=== PATIENT | male | born 1975 | race African-American/Black ===

== ENCOUNTER 2016-06-26 11:38 | Emergency (ER) | payer MEDICAID, OTHER ==
[~2016-06-26] VITALS: Ht 188 cm; Wt 136.1 kg
[2016-06-26 11:38] VITALS: BP 192/122
[2016-06-26] MEDS ORDERED: HYDR-971 PO (12:29)
--- NOTE | 2016-06-26 12:51 | ED.ADGEN ---
Past History Past Medical History: No Pertinent History Past Surgical History: No Surgical History Alcohol Use: Occasionally Drug Use: None Adult General HPI HPI Patient is a 41-year-old male presents emergency department complaining of left ankle pain since when the ankle last night while playing basketball. His been ambulating with pain. Has been using [id number] supportive measures without much success. Review of Systems Review of Systems Constitutional: Denies fever or chills [] Eyes: Denies change in visual acuity, redness, or eye pain [] HENT: Denies nasal congestion or sore throat [] Respiratory: Denies cough or shortness of breath [] Cardiovascular: No additional information not addressed in HPI [] GI: Denies abdominal pain, nausea, vomiting, bloody stools or diarrhea [] : Denies dysuria or hematuria [] Musculoskeletal: Denies back pain or joint pain [] Integument: Denies rash or skin lesions [] Neurologic: Denies headache, focal weakness or sensory changes [] Endocrine: Denies polyuria or polydipsia [] Allergies Allergies Allergies Coded Allergies Type Severity Reaction Last Updated Verified No Known Drug Allergies 06/26/16 No Physical Exam Physical Exam Constitutional: Well developed, well nourished, no acute distress, non-toxic appearance. [] HENT: Normocephalic, atraumatic, bilateral external ears normal, oropharynx moist, no oral exudates, nose normal. [] Eyes: PERRLA, EOMI, conjunctiva normal, no discharge. [] Neck: Normal range of motion, no tenderness, supple, no stridor. [] Cardiovascular:Heart rate regular rhythm, no murmur [] Lungs & Thorax: Bilateral breath sounds clear to auscultation [] Abdomen: Bowel sounds normal, soft, no tenderness, no masses, no pulsatile masses. [] Skin: Warm, dry, no erythema, no rash. [] Extremities: Left ankle is generally edematous with tenderness primarily over the Achilles and medial malleolus [] Neurologic: Alert and oriented X 3, normal motor function, normal sensory function, no focal deficits noted. [] Psychologic: Affect normal, judgement normal, mood normal. [] Current Patient Data Vital Signs Vital Signs Date Time Temp Pulse Resp B/P Pulse Ox O2 Delivery O2 Flow Rate FiO2 06/26/16 11:38 97.7 99 20 98 Room Air EKG EKG [] Radiology/Procedures Radiology/Procedures Left ankle x-ray interpreted by me no acute bony normality [] Course & Med Decision Making Course & Med Decision Making Pertinent Labs and Imaging studies reviewed. (See chart for details) Patient was placed in an air splint. Given a short prescription for Stephens. Also instructed with supportive care and follow-up directions. [] Final Impression Final Impression Left ankle pain. [] Problems: Dragon Disclaimer Dragon Disclaimer This electronic medical record was generated, in whole or in part, using a voice recognition dictation system. FEDERICA WEN MD Jun 26, 2016 12:50
--- NOTE | 2016-06-26 13:33 | RAD ---
ANKLE LEFT 3V Clinical Indication: pain s/p fall Comparison: None. Technique: Frontal, oblique and lateral views of the left ankle are obtained. Findings: No acute fracture or dislocation is seen. Ankle mortise is maintained. Overlying soft tissues demonstrate no focal abnormality. IMPRESSION: No acute osseous injury.
== END 2016-06-26 12:58 | disposition home or self-care (01) ==
LOC: ER 11:38
DX: M25.572 Pain in left ankle and joints of left foot (principal); X58.XXXA Exposure to other specified factors, initial encounter; Y93.67 Activity, basketball; Y99.8 Other external cause status; Y92.89 Other specified places as the place of occurrence of the external cause
CPT/HCPCS: 29515; 73610; 99284-25

== ENCOUNTER 2019-11-18 16:55 | Emergency (ER) | payer OTHER ==
[~2019-11-18] VITALS: Ht 190.5 cm; Wt 132.0 kg
[~2019-11-18 16:55] MED LIST: HYDR-3165 PO
[2019-11-18] MEDS ORDERED: IV NORMAL SALINE 1,000ML 1,000 ML IV ONE ×2 (17:00→19:15)
[2019-11-18] MEDS ORDERED: ONDANSETRON PF 4 MG/2 ML VIAL. IVP ONE (17:00)
--- NOTE | 2019-11-18 17:13 | PHYS DOC ---
Past History Past Medical History: No Pertinent History (LEONEL SHARMA DO) Past Surgical History: No Surgical History (LEONEL SHARMA DO) Alcohol Use: Occasionally Drug Use: None (LEONEL SHARMA DO) General Adult HPI: HPI: The history was obtained from the patient. Patient is a 44-year-old male with PMH hypertension who presents with a chief complaint of nausea and diarrhea. Patient states he has had nausea for the past 4 days. He also notes loose stool. He states he has had 1 loose stool per day. Denies any blood in the stool. Denies any recent antibiotics. Denies any recent travel. Denies any access to well water or new pets at home. Denies any abdominal pain, chest pain, or shortness of breath. He states every time he tries to eat that he has vomiting again. He notes subjective fevers and chills at home. Notes he was tested for coronavirus 1 month ago and was normal. He states he was tested for work and that he was asymptomatic. Denies any known exposure to coronavirus. Denies syncope. Has tried TheraFlu for the first time this morning without symptom relief. Denies urinary symptoms. No other complaints. (LEONEL SHARMA DO) Review of Systems: Review of Systems: Constitutional: Denies fever or chills Eyes: Denies change in visual acuity HENT: Denies nasal congestion or sore throat Respiratory: Denies cough or shortness of breath Cardiovascular: Denies chest pain or edema GI: Positive for nausea, vomiting, diarrhea : Denies dysuria Musculoskeletal: Denies back pain or joint pain Integument: Denies rash Neurologic: Denies headache, focal weakness or sensory changes Endocrine: Denies polyuria or polydipsia Lymphatic: Denies swollen glands Psychiatric: Denies depression or anxiety (LEONEL SHARMA DO) Heart Score: Risk Factors: Risk Factors: DM, Current or recent (<one month) smoker, HTN, HLP, family history of CAD, obesity. Risk Scores: Score 0 - 3: 2.5% MACE over next 6 weeks - Discharge Home Score 4 - 6: 20.3% MACE over next 6 weeks - Admit for Clinical Observation Score 7 - 10: 72.7% MACE over next 6 weeks - Early Invasive Strategies (TANQUARY,LEONEL H DO) Current Medications: Current Meds: Current Medications Medications (Trade) Dose Ordered Sig/Sandeep Start Time Stop Time Status Last Admin Dose Admin Ondansetron HCl (Zofran) 4 mg 1X ONCE 11/18/19 17:00 11/18/19 17:01 UNV Sodium Chloride 1,000 ml @ 1,000 mls/hr 1X ONCE 11/18/19 17:00 11/18/19 17:59 UNV (LEONEL SHARMA DO) Allergies: Allergies: Allergies Coded Allergies Type Severity Reaction Last Updated Verified No Known Drug Allergies 06/26/16 No (LEONEL SHARMA DO) Physical Exam: PE: Constitutional: Well developed, well nourished, no acute distress, non-toxic appearance. [] HENT: Normocephalic, atraumatic, bilateral external ears normal, oropharynx moist, no oral exudates, nose normal. [] Eyes: PERRLA, EOMI, conjunctiva normal, no discharge. [] Neck: Normal range of motion, no tenderness, supple, no stridor. [] Cardiovascular:Heart rate regular rhythm, no murmur [] Lungs & Thorax: Bilateral breath sounds clear to auscultation [] Abdomen: Soft, nontender, nonacute abdomen. No involuntary guarding or rigidity noted. No acute peritonitis. Skin: Warm, dry, no erythema, no rash. [] Back: No tenderness, no CVA tenderness. [] Extremities: No tenderness, no cyanosis, no clubbing, ROM intact, no edema. [] Neurologic: Alert and oriented X 3, normal motor function, normal sensory function, no focal deficits noted. [] Psychologic: Affect normal, judgement normal, mood normal. [] (LEONEL SHARMA DO) Current Patient Data: Vital Signs: Vital Signs Date Time Temp Pulse Resp B/P (MAP) Pulse Ox O2 Delivery O2 Flow Rate FiO2 11/18/19 17:05 99.7 98 20 207/129 (155) 96 Room Air (LEONEL SHARMA DO) Labs: Laboratory Tests Test 11/18/19 17:15 11/18/19 17:40 White Blood Count 3.1 x10^3/uL (4.0-11.0) Red Blood Count 3.75 x10^6/uL (4.30-5.70) Hemoglobin 11.3 g/dL (13.0-17.5) Hematocrit 33.9 % (39.0-53.0) Mean Corpuscular Volume 91 fL (79-100) Mean Corpuscular Hemoglobin 30 pg (25-35) Mean Corpuscular Hemoglobin Concent 33 g/dL (31-37) Red Cell Distribution Width 15.5 % (11.5-14.5) Platelet Count 155 x10^3/uL (140-400) Neutrophils (%) (Auto) 83 % (31-73) Lymphocytes (%) (Auto) 8 % (24-48) Monocytes (%) (Auto) 8 % (0-9) Eosinophils (%) (Auto) 0 % (0-3) Basophils (%) (Auto) 0 % (0-3) Neutrophils # (Auto) 2.5 x10^3uL (1.8-7.7) Lymphocytes # (Auto) 0.2 x10^3/uL (1.0-4.8) Monocytes # (Auto) 0.3 x10^3/uL (0.0-1.1) Eosinophils # (Auto) 0.0 x10^3/uL (0.0-0.7) Basophils # (Auto) 0.0 x10^3/uL (0.0-0.2) Sodium Level 137 mmol/L (136-145) Potassium Level 3.6 mmol/L (3.5-5.1) Chloride Level 103 mmol/L (98-107) Carbon Dioxide Level 19 mmol/L (21-32) Anion Gap 15 (6-14) Blood Urea Nitrogen 50 mg/dL (8-26) Creatinine 5.7 mg/dL (0.7-1.3) Estimated GFR (Cockcroft-Gault) 13.2 BUN/Creatinine Ratio 9 (6-20) Glucose Level 101 mg/dL (70-99) Calcium Level 7.6 mg/dL (8.5-10.1) Magnesium Level 2.0 mg/dL (1.8-2.4) Total Bilirubin 1.0 mg/dL (0.2-1.0) Aspartate Amino Transf (AST/SGOT) 67 U/L (15-37) Alanine Aminotransferase (ALT/SGPT) 55 U/L (16-63) Alkaline Phosphatase 64 U/L (46-116) Total Protein 6.0 g/dL (6.4-8.2) Albumin 2.7 g/dL (3.4-5.0) Albumin/Globulin Ratio 0.8 (1.0-1.7) Lipase 202 U/L (73-393) Urine Collection Type Unknown Urine Color Yellow Urine Clarity Hazy Urine pH 5.5 Urine Specific Allison 1.020 Urine Protein >100 mg/dl (NEG-TRACE) Urine Glucose (UA) Neg mg/dL (NEG) Urine Ketones (Stick) Neg mg/dL (NEG) Urine Blood Mod (NEG) Urine Nitrite Neg (NEG) Urine Bilirubin Neg (NEG) Urine Urobilinogen Dipstick 1.0 mg/dL (0.2 mg/dL) Urine Leukocyte Esterase Neg (NEG) Urine RBC 3-5 /HPF (0-2) Urine WBC Occ /HPF (0-4) Urine Squamous Epithelial Cells Few /LPF Urine Bacteria Few /HPF (0-FEW) Urine Hyaline Casts Occ /HPF Urine Mucus Slight /LPF (KENNETH SOLIS DO) EKG: EKG: [] (LEONEL SHARMA DO) Radiology/Procedures: Radiology/Procedures: [] (LEONEL SHARMA DO) Course & Med Decision Making: Course & Med Decision Making Pertinent Labs and Imaging studies reviewed. (See chart for details) Patient is overall well-appearing 44-year-old male who presents with a chief complaint of nausea associated with 4 episodes of nonbloody loose stool. Initial vital signs unremarkable. Patient is overall well-appearing and has a benign abdominal exam. At this time laboratory analysis is pending. COVID swab was obtained and pending. He will be notified of positive results. Overall I do anticipate the patient to be discharged home pending lab results. I have signed out the patient's emergency department care to Dr. Solis. We discussed the history, physical exam findings, completed and pending laboratory results and imaging studies. We have also discussed the current treatment plan and expected clinical course. Please refer to chart for the patient's remaining emergency department course, final disposition, and clinical impression(s). (LEONEL SHARMA DO) Course & Med Decision Making Thorough signout obtained from off going physician Patient seen and evaluated by myself, reports feeling better symptomatically after administration of 1 L IV normal saline Nonetheless, reviewed laboratory results significant for acute renal failure, creatinine greater than 5 No known history of kidney disease but patient does have hypertension that was markedly elevated today, this is likely contributory to laboratory finding I discussed need for ongoing IV fluid resuscitation and nephrology consultation, I recommended hospital admission and patient was amenable Case discussed with on-call hospitalist at [facility], Dr. Beal, who agreed to accept patient under his care for continued medical therapy and nephrology consultation I discussed this decision with patient who was agreeable An additional 1 L IV normal saline bolus was started prior to transport in stable condition to [facility] for continued medical therapy for patient with acute renal failure who is also a PUI for COVID-19 (KENNETH SOLIS DO) Alberto Disclaimer: Alberto Disclaimer: This electronic medical record was generated, in whole or in part, using a voice recognition dictation system. (LEONEL SHARMA DO) Departure Departure: Impression: Primary Impression: Nausea Additional Impressions: Diarrhea Qualified Codes: R19.7 - Diarrhea, unspecified ARF (acute renal failure) Person under investigation for COVID-19 Disposition: 05 TRANSFER OTHER ([facility]) Admitting Physician: Other (DR BEAL) (KENNETH SOLIS DO) Condition: STABLE Referrals: ALEYDA SAM DO (PCP) Justification of Admission: Justification of Admission: Justification of Admission Dx: N/A (LEONEL SHARMA DO) Justification of Admission Dx: Yes Acute Renal Failure: Serum Cr > 4mg/dL (KENNETH SOLIS DO) LEONEL SHARMA DO Nov 18, 2019 17:13 KENNETH SOLIS DO Nov 18, 2019 19:00
[2019-11-18] MEDS ORDERED: ACETAMINOPHEN 500 MG TABLET PO ONE (17:25)
[2019-11-18 17:59] LABS: BASO % 0 % (0-3); EOS % 0 % (0-3); HEMATOCRIT 33.9 % (39.0-53.0); HEMOGLOBIN 11.3 g/dL (13.0-17.5); LYMPH # 0.2 x10^3/uL (1.0-4.8); LYMPH % 8 % (24-48); MEAN CORPUSCULAR HEMOGLOBIN 30 pg (25-35); MEAN CORPUSCULAR HGB CONC 33 g/dL (31-37); MEAN CORPUSCULAR VOLUME 91 fL (79-100); MONO # 0.3 x10^3/uL (0.0-1.1); MONO % 8 % (0-9); NEUT # 2.5 x10^3uL (1.8-7.7); NEUT % 83 % (31-73); PLATELET COUNT 155 x10^3/uL (140-400); RED BLOOD COUNT 3.75 x10^6/uL (4.30-5.70); RED CELL DISTRIBUTION WIDTH 15.5 % (11.5-14.5); WHITE BLOOD COUNT 3.1 x10^3/uL (4.0-11.0)
[2019-11-18 18:08] LABS: CALCIUM 7.6 mg/dL (8.5-10.1); CREATININE 5.7 mg/dL (0.7-1.3); GFR 13.2; POTASSIUM 3.6 mmol/L (3.5-5.1)
[2019-11-18 18:12] LABS: BILIRUBIN,URINE NEG (NEG); CLARITY,URINE HAZY; COLOR,URINE YELLOW; GLUCOSE,URINE NEG (NEG)
[2019-11-18 18:13] LABS: BACTERIA,URINE FEW /HPF (0-FEW); NITRITE,URINE NEG (NEG); SQUAMOUS EPITHELIAL CELL,UR FEW /LPF; WBC,URINE OCC /HPF (0-4)
[2019-11-18 18:14] LABS: ALBUMIN 2.7 g/dL (3.4-5.0); ALBUMIN/GLOBULIN RATIO 0.8 (1.0-1.7)
[2019-11-18 18:14] LABS: HYALINE CASTS, URINE OCC /HPF
[2019-11-18 19:22] LABS: % BANDS 5 % (0-9); % LYMPHS 10 % (24-48); % MONOS 4 % (0-10); % SEGS 81 % (35-66); PLT ESTIMATE ADEQUATE (ADEQUATE)
[2019-11-18] MEDS ORDERED: amLODIPine BESYLATE 5 MG TABLET PO ONE (19:30)
[2019-11-18 20:36] VITALS: BP 194/99
--- NOTE | 2019-11-21 09:12 | NUR ---
IP: patient notified of COVID result, discussed precautions, patient verbalized understanding.
--- NOTE | 2019-11-21 09:46 | NUR ---
IP: notified nurse Freya at [facility] of COVID result.
== END 2019-11-18 20:52 | disposition short-term general hospital (02) ==
LOC: ER 16:55
DX: U07.1 COVID-19 (principal); N17.9 Acute kidney failure, unspecified; R19.7 Diarrhea, unspecified; R11.0 Nausea; I10 Essential (primary) hypertension
CPT/HCPCS: 36415; 80053; 81001; 83690; 83735; 85007; 85025; 96361; 96374; 99285; C9803; J2405; J7030; U0003

== ENCOUNTER 2020-01-22 14:33 | Observation (INO) | payer OTHER ==
[~2020-01-22] VITALS: Ht 189.2 cm; Wt 142.5 kg
[~2020-01-22 14:33] MED LIST changes: +AZIT250T PO
[2020-01-22 15:16] VITALS: BP 137/68
[2020-01-22] MEDS ORDERED: ISOS30TA4 PO (15:30)
[2020-01-22] MEDS ORDERED: AMLO-187 PO (15:30)
[2020-01-22] MEDS ORDERED: DOXA4TAB3 PO (15:30)
[2020-01-22] MEDS ORDERED: CLON0.3T PO (15:30)
[2020-01-22] MEDS ORDERED: FUROSEMIDE 40 MG/4 ML VIAL IVP ONE (15:45)
--- NOTE | 2020-01-22 16:09 | RAD ---
Exam: Chest one view INDICATION: Short of air, fluid overload TECHNIQUE: Frontal view of the chest Comparisons: None FINDINGS: The cardiomediastinal silhouette and pulmonary vessels are within normal limits. The lung and pleural spaces are clear. IMPRESSION: No acute cardiopulmonary process. Electronically signed by: Franky Webster MD (01/22/2020 4:06 PM) BUSHRA
[2020-01-22 16:18] LABS: BASO % 1 % (0-3); EOS % 2 % (0-3); HEMATOCRIT 22.1 % (39.0-53.0); HEMOGLOBIN 7.3 g/dL (13.0-17.5); LYMPH # 0.5 x10^3/uL (1.0-4.8); LYMPH % 18 % (24-48); MEAN CORPUSCULAR HEMOGLOBIN 30 pg (25-35); MEAN CORPUSCULAR HGB CONC 33 g/dL (31-37); MEAN CORPUSCULAR VOLUME 92 fL (79-100); MONO # 0.3 x10^3/uL (0.0-1.1); MONO % 10 % (0-9); NEUT % 70 % (31-73); PLATELET COUNT 159 x10^3/uL (140-400); RED BLOOD COUNT 2.41 x10^6/uL (4.30-5.70); RED CELL DISTRIBUTION WIDTH 17.5 % (11.5-14.5); WHITE BLOOD COUNT 2.9 x10^3/uL (4.0-11.0)
[2020-01-22 16:28] LABS: CALCIUM 8.2 mg/dL (8.5-10.1); CREATININE 7.6 mg/dL (0.7-1.3); GFR 9.5; POTASSIUM 4.6 mmol/L (3.5-5.1)
[2020-01-22 16:33] LABS: ALBUMIN 3.1 g/dL (3.4-5.0); TOTAL BILIRUBIN 0.4 mg/dL (0.2-1.0); TOTAL PROTEIN 6.2 g/dL (6.4-8.2)
--- NOTE | 2020-01-22 17:05 | EKG ---
[address] [address] Test Date: 2020-01-22 Test Time: 16:18:58 Pat Name: JINA PAN Department: Room: [place] [address] Gender: M Heading Pinner: : 1975 Requested By: NAKIA LORENZ Order Number: [id number] Reading MD: Olivier Beard Measurements Intervals [place] Rate: 65 P: 51 CO: 212 QRS: -26 QRSD: 102 T: 63 QT: 430 QTc: 448 Interpretive Statements SINUS RHYTHM LEFTWARD AXIS Electronically Signed On 01-25-2020 15:52:30 GALLERY [employer] MUSEUM GUIDE by Olivier Beard
[2020-01-22 19:00] VITALS: BP 151/84
[2020-01-22] MEDS ORDERED: FUROSEMIDE 20 MG/2 ML VIAL IVP ONE (19:30)
--- NOTE | 2020-01-22 19:38 | NUR ---
Patient arrived without warning from the medical office of doctor Corley. Was told to come here by the office and so he did with no orders or warning. After drawing patient labs and receiving results, doctor Barney was promptly notified about need for dialysis given kidney function. Patient adamant about not going to [facility] because of the terrible time he had there recently. He has had a temporary dialysis cath in the past. Tried to transfer to another hospital but all were on diversion according to Dr. Corley. spoke to licensed and certified midwife at who suggested giving 20 of IV lasix and rechecking kidney values in am to see where they stand. Awaiting potential transfer to another hospital for dialysis reasons. 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 20 gauge IV started in right ac upon arrival to ICU.
[2020-01-22 22:32] LABS: BACTERIA,URINE 0 /HPF (0-FEW); BILIRUBIN,URINE NEG (NEG); CLARITY,URINE CLEAR; COLOR,URINE YELLOW; GLUCOSE,URINE NEG (NEG); NITRITE,URINE NEG (NEG); RBC,URINE 0 /HPF (0-2); SQUAMOUS EPITHELIAL CELL,UR OCC /LPF; UROBILINOGEN,URINE 0.2 mg/dL (0.2 mg/dL); WBC,URINE OCC /HPF (0-4)
[2020-01-22 23:00] VITALS: BP 150/90
[2020-01-23 03:00] VITALS: BP 156/68
[2020-01-23 07:00] VITALS: BP 146/78
[2020-01-23 07:00] LABS: CALCIUM 8.3 mg/dL (8.5-10.1); CREATININE 7.4 mg/dL (0.7-1.3); GFR 9.8; POTASSIUM 4.4 mmol/L (3.5-5.1)
[2020-01-23] MEDS ORDERED: FUROSEMIDE 20 MG/2 ML VIAL IVP SCH (09:00)
[2020-01-23] MEDS ORDERED: FUROSEMIDE 40 MG/4 ML VIAL IVP ONE (09:30)
--- NOTE | 2020-01-23 10:00 | NUR ---
Dr. Corley here to see patient this am. Patient refuses to go to [facility] and would only want to go through [facility] for possible dialysis. CM is reaching out to Neph clinic at [facility] to see how soon patient can be seen. Patient states he has very important things to do today and needs to leave today. Currently awaiting JOCELYN
[2020-01-23 11:00] VITALS: BP 140/76
--- NOTE | 2020-01-23 14:45 | NUR ---
referral to [facility] nephrology clinic was faxed by CM. Pt is to call Dr. Corley Monday am and earlier if needed. IV dc'd, bandage applied. pt ambulated to pov upon discharge. pt refused wheelchair.
--- NOTE | 2020-01-27 16:26 | DS ---
DATE OF DISCHARGE: 01/23/2020 HOSPITAL COURSE: A 45-year-old male, noncompliant, had been seen in the office, markedly fluid overloaded, said that he could not bend his legs because of so much fluid on him. He was brought into the hospital and found to have a white count of 2.9, hemoglobin of 7.3 and 22. The patient's creatinine was 7.6 with a BUN of 60. The patient's BNP was 8100. The patient obviously was in the renal failure, but in a compensated mode in that. He actually overall said he felt really good and was able to function except for the fluid overload. After attempting to get him transfer to several places and all were on diversion, I was fortunate to be able to talk to a material specialist from who recommended trying him on some Lasix to see if he improved and that would give us a clue as to how fast he would need dialysis. The patient felt much better with the diuresis and was discharged home and then he will follow up with the Nephrology Clinic for further evaluation. IMPRESSION: Chronic renal failure stage V, noncompliance; anemia of renal failure; leukopenia and moderate protein malnutrition. The patient was discharged home on a kidney failure diet. He will followup accordingly with the Clinic and was told if he did not hear by tomorrow or the next day after he was discharged, to call immediately for a further referral for a Nephrology consult. The patient left in good condition. He refused wheelchair. He was in such good strength. He just walked out. NAKIA LORENZ MD DR: GUDELIA/hayley JOB#: [id number] / [id number]
== END 2020-01-23 14:45 | disposition home or self-care (01) ==
LOC: INTOOBSV 14:33 → ICU 14:33
PROVIDERS: ADMIT Family Medicine; ATTEND Family Medicine
DX: E87.70 Fluid overload, unspecified (principal); I12.0 Hypertensive chronic kidney disease with stage 5 chronic kidney disease or end stage renal disease; N18.5 Chronic kidney disease, stage 5; M62.81 Muscle weakness (generalized); D63.1 Anemia in chronic kidney disease; D72.819 Decreased white blood cell count, unspecified; E44.0 Moderate protein-calorie malnutrition; I48.91 Unspecified atrial fibrillation; R53.83 Other fatigue; Z99.2 Dependence on renal dialysis; Z91.19 Patient's noncompliance with other medical treatment and regimen
CPT/HCPCS: 36415; 71045; 80048; 80053; 81001; 82550; 83605; 83880; 85025; 85379; 93005; 96374; 96376; G0378; G0379; J1940

== ENCOUNTER 2020-08-29 14:37 | Emergency (ER) | payer OTHER ==
[~2020-08-29] VITALS: Ht 189.2 cm; Wt 142.5 kg
[~2020-08-29 14:37] MED LIST changes: +AMLO-187 PO; +CLON0.3T PO; +DOXA4TAB3 PO; +ISOS30TA68 PO
[2020-08-29] MEDS ORDERED: ONDANSETRON PF 4 MG/2 ML VIAL. IVP ONE (15:15)
[2020-08-29] MEDS ORDERED: ONDANSETRON ODT 4 MG TAB.RAPDIS ONE (15:16)
[2020-08-29] MEDS ORDERED: cloNIDine HCL 0.1 MG TABLET PO ONE (15:30)
--- NOTE | 2020-08-29 15:39 | PHYS DOC ---
Past History Past Medical History: Hypertension (MARANDA BARRAZA APRN) Past Surgical History: No Surgical History (MARANDA BARRAZA APRN) Alcohol Use: Occasionally Drug Use: None (MARANDA BARRAZA APRN) General Adult EDM: Chief Complaint: ABDOMINAL PAIN HPI: HPI: Patient is a 45-year-old male presents with abdominal pain, nausea and vomiting for 2 days. Patient states he has not had a bowel movement in 2 days. Patient denies taking any thing for pain or nausea at home. Patient is a history of hypertension and denies taking medication today due to nausea. Patient denies shortness of breath, chest pain. (MARANDA BARRAZA APRN) Review of Systems: Review of Systems: Constitutional: Denies fever or chills Eyes: Denies change in visual acuity HENT: Denies nasal congestion or sore throat Respiratory: Denies cough or shortness of breath Cardiovascular: Denies chest pain or edema GI: Reports abdominal pain, nausea, constipation : Denies dysuria Musculoskeletal: Denies back pain or joint pain Integument: Denies rash Neurologic: Denies headache, focal weakness or sensory changes Endocrine: Denies polyuria or polydipsia Lymphatic: Denies swollen glands Psychiatric: Denies depression or anxiety (MARANDA BARRAZA APRN) Current Medications: Current Meds: Current Medications Medications (Trade) Dose Ordered Sig/Sandeep Start Time Stop Time Status Last Admin Dose Admin Clonidine HCl (Catapres) 0.2 mg 1X ONCE 08/29/20 15:30 08/29/20 15:31 DC Ondansetron HCl (Zofran Odt) 4 mg STK-MED ONCE 08/29/20 15:16 08/29/20 15:16 DC Ondansetron HCl (Zofran) 4 mg 1X ONCE 08/29/20 15:15 08/29/20 15:18 DC (MARANDA BARRAZA APRN) Allergies: Allergies: Allergies Coded Allergies Type Severity Reaction Last Updated Verified No Known Drug Allergies 06/26/16 No (MARANDA BARRAZA APRN) Physical Exam: PE: Constitutional: Well developed, well nourished, no acute distress, non-toxic appearance. [] HENT: Normocephalic, atraumatic, bilateral external ears normal, oropharynx moist, no oral exudates, nose normal. [] Eyes: PERRLA, EOMI, conjunctiva normal, no discharge. [] Neck: Normal range of motion, no tenderness, supple, no stridor. [] Cardiovascular:Heart rate regular rhythm, no murmur [] Lungs & Thorax: Bilateral breath sounds clear to auscultation [] Abdomen: Bowel sounds normal, soft, no tenderness Skin: Warm, dry, no erythema, no rash. [] Back: No tenderness, no CVA tenderness. [] Extremities: No tenderness, no cyanosis, no clubbing, ROM intact, no edema. [] Neurologic: Alert and oriented X 3, normal motor function, normal sensory function, no focal deficits noted. [] Psychologic: Affect normal, judgement normal, mood normal. [] (MARANDA BARRAZA APRN) Current Patient Data: Vital Signs: Vital Signs Date Time Temp Pulse Resp B/P (MAP) Pulse Ox O2 Delivery O2 Flow Rate FiO2 08/29/20 15:01 98.2 81 20 213/129 (157) 100 Room Air (MARANDA BARRAZA APRN) EKG: EKG: [] (MARANDA BARRAZA APRN) Radiology/Procedures: Radiology/Procedures: []Examination: CT of the abdomen pelvis without contrast History :history of epigastric abdominal pain COMPARISON: None available TECHNIQUE: Axial CT images of the abdomen pelvis were performed without contrast. Coronal and sagittal reformats are performed. Exposure: One or more of the following individualized dose reduction techniques were utilized for this examination: 1. Automated exposure control 2. Adjustment of the mA and/or kV according to patient size 3. Use of iterative reconstruction technique FINDINGS: The bibasilar lungs are clear. No evidence of free air identified in the abdomen. Examination limited lack of IV and oral contrast. The visualized noncontrasted liver, spleen, adrenals grossly appears unremarkable. The gallbladder is mildly distended. The stomach is mildly distended. The visualized pancreas grossly appears unremarkable. Examination limited due to motion artifact. Severe inflammatory fat stranding identified in the small bowel in the mid and lower bowel loops with bowel wall thickening likely diffuse enteritis. Feces and gas noted in the colon. The appendix is normal. Urinary bladder is mildly distended. Mild degenerative changes lumbar spine. Small amount of free fluid identified in the pelvis. No evidence of intrarenal collecting system calculi or hydronephrosis. 1.1 cm cystic structure right kidney. Mild degenerative changes lumbar spine. IMPRESSION: 1. Severe inflammatory fat stranding identified in the small bowel in the mid and lower bowel loops with bowel wall thickening likely severe diffuse enteritis. 2. Small amount of free fluid identified in the pelvis. 3. 1.1 cm cystic structure identified in the right kidney could be a cyst or cystic lesion. Follow-up nonemergent ultrasound kidneys can be considered. Electronically signed by: Ricardo Mireles MD (08/29/2020 3:40 PM) [id number] (MARANDA BARRAZA APRN) Heart Score: C/O Chest Pain: No Risk Factors: Risk Factors: DM, Current or recent (<one month) smoker, HTN, HLP, family history of CAD, obesity. Risk Scores: Score 0 - 3: 2.5% MACE over next 6 weeks - Discharge Home Score 4 - 6: 20.3% MACE over next 6 weeks - Admit for Clinical Observation Score 7 - 10: 72.7% MACE over next 6 weeks - Early Invasive Strategies (MARANDA BARRAZA APRN) Course & Med Decision Making: Course & Med Decision Making Pertinent Labs and Imaging studies reviewed. (See chart for details) [] 45-year-old male presents with abdominal pain for 2 days. Patient denies bowel movement for 2 days. Patient is also reporting nausea and vomiting. Patient given [address] of abdomen and pelvis ordered to rule out obstructions. Given 4 mg of morphine for pain. Patient blood pressure was elevated in the 200s. Patient denies taking his blood pressure medicine today before coming to the emergency room. Patient given 0.2 mg of clonidine. Will reassess blood pressure. Patient blood pressure had improved on reassessment. Discussed with patient the importance of taking his blood pressure may medicine daily. Patient's BUN is 101, creatinine 8.6. Discussed result with patient. Patient informed me he is supposed to be seeing a grassroots organizer at . Explained to patient that he needed to be admitted to the hospital to see nephrology and to discuss dialysis. Patient states that he does not want to be admitted to the hospital that he will go home and follow-up with . Patient signed AMA paperwork due to refusing admission. CT of abdomen and pelvis shows enteritis. Patient sent home with prescription for Augmentin. Zofran for nausea. Instructed patient to purchase [id number] mag citrate to help with constipation. Patient is appreciative and okay with discharge plan. (MARANDA BARRAZA APRN) Course & Med Decision Making I personally spoke with the patient to convey the seriousness of his condition. Patient stated verbal understanding. He refuses to be admitted or transferred. (YESENIA GLYNN DO) Dragon Disclaimer: Dragon Disclaimer: This electronic medical record was generated, in whole or in part, using a voice recognition dictation system. (MARANDA BARRAZA APRN) Attending Co-Sign The patient was seen and interviewed as well as examined at the bedside. The chart was reviewed. The case was discussed. Agree with the plan of care. (YESENIA GLYNN DO) Departure Departure: Impression: Primary Impression: Enteritis Additional Impressions: Abdominal pain Qualified Codes: R10.84 - Generalized abdominal pain Constipation Qualified Codes: K59.00 - Constipation, unspecified Disposition: HOME / SELF CARE / HOMELESS Condition: STABLE Referrals: NAKIA LORENZ MD (PCP) Patient Instructions: Abdominal Pain, Constipation, Adult, [id number] Additional Instructions: You are seen emergency room for abdominal pain and constipation. CT of your abdomen did not show signs of any obstructions. I am giving you an antibiotic to take due to enteritis. Please take stool softeners, increase your fluid intake, and purchase mag citrate at the pharmacy that will help with constipation. I will send you home with Zofran to help treat your nausea. Please return to emergency room if worsening symptoms or concerns. EMERGENCY DEPARTMENT GENERAL DISCHARGE INSTRUCTIONS Thank you for coming to [facility] (ED) today and trusting us with you care. We trust that you had a positivie experience in our Emergency Department. If you wish to speak to the department management, you may call the director at [phone]. YOUR FOLLOW UP INSTRUCTIONS ARE FOLLOWS: 1. Do you have a private Doctor? If you do not have a private doctor, please ask for a resource list of physicians or clinics that may be able to assist you with follow up care. 2. The Emergency Physician has interpreted your x-rays. The X-Ray specialist will also review them. If there is a change in the findings, you will be notified in 48 hours when at all possible. 3. A lab test or culture has been done, your results will be reviewed and you will be notified if you need a change in treatment. ADDITIONAL INSTRUCTIONS AND INFORMATION: 1. Your care today has been supervised by a physician who is specially trained in emergency care. Many problems require more than one evaluation for a complete diagnosis and treatment. We recommend that you schedule your follow up appointment as recommended to ensure complete treatment of you illness or injury. If you are unable to obtain follow up care and continue to have a problem, or if your condition worsens, we recommend that you return to the ED. 2. We are not able to safely determine your condition over the phone nor are we able to give sound medical advice over the phone. For these safety reasons, if you call for medical advice we will ask you to come to the ED for further evaluation. 3. If you have any questions regarding these discharge instructions please call the ED at [phone]. SAFETY INFORMATION: In the interest of safety, wellness, and injury prevention; we encourage you to wear your sealbelt, if you smoke; quite smoking, and we encourage family to use a protective helmet for bicycling and other sporting events that present an increased risk for head injury. IF YOUR SYMPTOMS WORSEN OR NEW SYMPTOMS DEVELOP, OR YOU HAVE CONCERNS ABOUT YOUR CONDITION; OR IF YOUR CONDITION WORSENS WHILE YOU ARE WAITING FOR YOUR FOLLOW UP APPOINTMENT; EITHER CONTACT YOUR PRIMARY CARE DOCTOR, THE PHYSICIAN WHOSE NAME AND NUMBER YOU WERE GIVEN, OR RETURN TO THE ED IMMEDIATELY. Scripts Amoxicillin/Potassium Clav (AUGMENTIN 875-125 TABLET) 1 Each Tablet 1 TAB PO BID for enteritis for 10 Days, #20 TAB 0 Refills Prov: MARANDA BARRAZA APRN 08/29/20 Ondansetron Hcl (ZOFRAN) 4 Mg Tablet 4 MG PO TID PRN PRN for NAUSEA, #9 TAB Prov: MARANDA BARRAZA APRN 08/29/20 MARANDA BARRAZA APRN Aug 29, 2020 15:39 YESENIA GLYNN DO Aug 30, 2020 06:40
--- NOTE | 2020-08-29 15:42 | RAD ---
Examination: CT of the abdomen pelvis without contrast History :history of epigastric abdominal pain COMPARISON: None available TECHNIQUE: Axial CT images of the abdomen pelvis were performed without contrast. Coronal and sagitta l reformats are performed. Exposure: One or more of the following individualized dose reduction techniques were utilized for thi s examination: 1. Automated exposure control 2. Adjustment of the mA and/or kV according to patient size 3. Use of iterative reconstruction technique FINDINGS: The bibasilar lungs are clear. No evidence of free air identified in the abdomen. Examination limited lack of IV and oral contrast. The visualized noncontrasted liver, spleen, adrenals grossly appears u nremarkable. The gallbladder is mildly distended. The stomach is mildly distended. The visualized dickens creas grossly appears unremarkable. Examination limited due to motion artifact. Severe inflammatory f at stranding identified in the small bowel in the mid and lower bowel loops with bowel wall thickenin g likely diffuse enteritis. Feces and gas noted in the colon. The appendix is normal. Urinary bladder is mildly distended. Mild degenerative changes lumbar spine. Small amount of free fluid identified in the pelvis. No evidence of intrarenal collecting system calc stephanie or hydronephrosis. 1.1 cm cystic structure right kidney. Mild degenerative changes lumbar spine. IMPRESSION: 1. Severe inflammatory fat stranding identified in the small bowel in the mid and lower bowel loops with bowel wall thickening likely severe diffuse enteritis. 2. Small amount of free fluid identified in the pelvis. 3. 1.1 cm cystic structure identified in the right kidney could be a cyst or cystic lesion. Follow-u p nonemergent ultrasound kidneys can be considered. Electronically signed by: Ricardo Mireles MD (08/29/2020 3:40 PM) [id number]
[2020-08-29 16:11] LABS: BASO % 0 % (0-3); EOS # 0.1 x10^3/uL (0.0-0.7); EOS % 1 % (0-3); HEMATOCRIT 29.8 % (39.0-53.0); HEMOGLOBIN 10.4 g/dL (13.0-17.5); LYMPH # 0.4 x10^3/uL (1.0-4.8); LYMPH % 4 % (24-48); MEAN CORPUSCULAR HEMOGLOBIN 31 pg (25-35); MEAN CORPUSCULAR HGB CONC 35 g/dL (31-37); MEAN CORPUSCULAR VOLUME 90 fL (79-100); MONO # 1.3 x10^3/uL (0.0-1.1); MONO % 12 % (0-9); NEUT # 9.2 x10^3uL (1.8-7.7); NEUT % 84 % (31-73); PLATELET COUNT 138 x10^3/uL (140-400); RED CELL DISTRIBUTION WIDTH 14.2 % (11.5-14.5)
[2020-08-29 16:16] LABS: CALCIUM 6.6 mg/dL (8.5-10.1); CREATININE 8.6 mg/dL (0.7-1.3); GFR 8.2; POTASSIUM 3.8 mmol/L (3.5-5.1)
[2020-08-29 16:22] LABS: ALBUMIN 2.2 g/dL (3.4-5.0); ALBUMIN/GLOBULIN RATIO 0.7 (1.0-1.7); TOTAL BILIRUBIN 0.3 mg/dL (0.2-1.0); TOTAL PROTEIN 5.3 g/dL (6.4-8.2)
[2020-08-29] MEDS ORDERED: MORPHINE SULFATE 4 MG/ML DISP.SYRIN. IV ONE ×3 (16:30→17:45)
[2020-08-29] MEDS ORDERED: SIMETHICONE 80 MG TAB.CHEW PO PRN (16:30)
[2020-08-29] MEDS ORDERED: AMOX1TAB61 PO (16:34)
[2020-08-29] MEDS ORDERED: ONDA4TAB7 PO (16:34)
--- NOTE | 2020-08-29 16:54 | EKG ---
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
[2020-08-29 17:16] VITALS: BP 172/105
== END 2020-08-29 17:55 | disposition home or self-care (01) ==
LOC: ER 14:37
DX: K52.9 Noninfective gastroenteritis and colitis, unspecified (principal); K59.00 Constipation, unspecified
CPT/HCPCS: 36415; 74176; 80053; 85025; 93005; 96374; 96375; 96376; 99285; J2270; J2405

== ENCOUNTER 2021-08-06 19:43 | Emergency (ER) | payer OTHER ==
[~2021-08-06] VITALS: Ht 190.5 cm; Wt 133.1 kg
[~2021-08-06 19:43] MED LIST changes: +AMOX1TAB61 PO; +ONDA4TAB7 PO
[2021-08-06] MEDS ORDERED: MORPHINE SULFATE 10 MG/ML SYRINGE. IV ONE ×2 (20:00→21:15)
[2021-08-06] MEDS ORDERED: ONDANSETRON PF 4 MG/2 ML VIAL. IVP ONE (20:00)
--- NOTE | 2021-08-06 20:07 | PHYS DOC ---
Adult General Chief Complaint Chief Complaint: CHEST PAIN HPI HPI Patient is a 46-year-old male with a past medical history of obesity and uncontrolled hypertension who presents to the emergency department with left- sided, sharp chest pain, worse with inspiration that started early this morning and has progressively gotten worse over the course of the day. States that he has significant dyspnea on exertion, no orthopnea but bilateral lower extremity edema that started 2 days ago as well that he is never had before. Denies any recent travels, traumas, illnesses, fevers, pain or trouble swallowing, abdominal pain, dysuria, hematuria, blood in the stool or diarrhea. States he is nauseous but has not thrown up. States otherwise he is eating and drinking well. States he is making urine and stool well for him up until 2 days ago. Review of Systems Review of Systems Review of systems otherwise unremarkable except noted in HPI Allergies Allergies Allergies Coded Allergies Type Severity Reaction Last Updated Verified No Known Drug Allergies 08/06/21 No Physical Exam Physical Exam Constitutional: Well developed, well nourished, mild paleness, mild diaphoresis, appears uncomfortable HENT: Normocephalic, atraumatic, bilateral external ears normal, oropharynx moist, no oral exudates, nose normal. [] Eyes: PERRLA, EOMI, conjunctiva normal, no discharge. [] Neck: Normal range of motion, no tenderness, supple, no stridor. [] Cardiovascular: Sinus tachycardia Lungs & Thorax: Hypoxic on room air, tachypneic, no obvious wheezing or rhonchi, shallow breaths Abdomen: soft, no tenderness, no masses, no pulsatile masses. [] Skin: Warm, dry, no erythema, no rash. [] Back: No tenderness, no CVA tenderness. [] Extremities: No tenderness, no cyanosis, no clubbing, ROM intact, no edema. [] Neurologic: Alert and oriented X 3, normal motor function, normal sensory function, no focal deficits noted. [] Psychologic: Affect normal, judgement normal, mood normal. [] EKG EKG [] Radiology/Procedures Radiology/Procedures [] Heart Score C/O Chest Pain: Yes HEART Score for Chest Pain: HEART Score for Chest Pain Response (Comments) Value History Highly Suspicious 2 Age >45 - < 65 1 Risk Factors 1 or 2 Risk Factors 1 Total 4 Risk Factors: Risk Factors: DM, Current or recent (<one month) smoker, HTN, HLP, family history of CAD, obesity. Risk Scores: Risk Factors: DM, Current or recent (<one month) smoker, HTN, HLP, family history of CAD, obesity. Course & Med Decision Making Course & Med Decision Making Patient is a 46-year-old male who presents to the emergency department with chest pain, and shortness of breath which started early in the morning is progressively gotten worse Vital signs notable for tachycardia, hypertension, tachypnea and hypoxia on room air. Physical exam noted above. Placed on the monitor with cardiac pads in place, 2 IVs established, given pain and nausea medicine. Initially started with Cardene, however since patient's picture looks more like scape, started on CPAP and nitroglycerin. EKG with a rate of 102, QRS of 108, QTc of 493, no STEMI. Troponin slightly elevated at 101. Normocytic anemia. Anion gap metabolic acidemia likely secondary to kidney insufficiency/uremia. KRISTIE with a creatinine of 15.8. Is otonic bicarb fluid resuscitation begun. Blood cultures obtained. Antibiotics given. Protonix given. 2 units packed red blood cells given. Discussed all findings with patient and recommended admission to [facility]. Dr. Wilder accepted to [facility] ICU. Patient decided he did not want to go to [facility] as he is been there before and thinks people there mean to him. [facility]. Dragon Disclaimer Dragon Disclaimer This electronic medical record was generated, in whole or in part, using a voice recognition dictation system. Departure Departure: Impression: Primary Impression: Respiratory distress Additional Impressions: Hypoxemia Normocytic anemia Metabolic acidemia Uremia Disposition: 02 [facility] Admitting Physician: Other Condition: STABLE Problem Qualifiers VIANCA MORALES MD August 06, 2021 20:07
[2021-08-06] MEDS ORDERED: IOHEXOL 350 MG/ML 100 ML VIAL. IV ONE (20:15)
[2021-08-06] MEDS ORDERED: IV NORMAL SALINE 250ML 250 ML ONE (20:17)
[2021-08-06] MEDS ORDERED: niCARdipine INJ. IV ONE (20:17)
[2021-08-06 20:21] LABS: BASO % 1 % (0-3); EOS % 1 % (0-3); HEMATOCRIT 16.2 % (39.0-53.0); LYMPH # 0.2 x10^3/uL (1.0-4.8); LYMPH % 4 % (24-48); MEAN CORPUSCULAR HEMOGLOBIN 31 pg (25-35); MEAN CORPUSCULAR HGB CONC 34 g/dL (31-37); MEAN CORPUSCULAR VOLUME 91 fL (79-100); MONO # 0.5 x10^3/uL (0.0-1.1); MONO % 10 % (0-9); NEUT # 4.3 x10^3uL (1.8-7.7); NEUT % 84 % (31-73); PLATELET COUNT 144 x10^3/uL (140-400); RED BLOOD COUNT 1.78 x10^6/uL (4.30-5.70); RED CELL DISTRIBUTION WIDTH 15.3 % (11.5-14.5); WHITE BLOOD COUNT 5.1 x10^3/uL (4.0-11.0)
[2021-08-06 20:24] LABS: HEMOGLOBIN 5.5 g/dL (13.0-17.5)
[2021-08-06 20:34] LABS: ALBUMIN 3.5 g/dL (3.4-5.0); ALBUMIN/GLOBULIN RATIO 1.2 (1.0-1.7); CALCIUM 6.7 mg/dL (8.5-10.1); CREATININE 15.8 mg/dL (0.7-1.3); GFR 3.3; MAGNESIUM 1.9 mg/dL (1.8-2.4); POTASSIUM 3.7 mmol/L (3.5-5.1); TOTAL BILIRUBIN 0.4 mg/dL (0.2-1.0); TOTAL PROTEIN 6.5 g/dL (6.4-8.2)
[2021-08-06] MEDS ORDERED: IV RINGERS SOLUTION,LACTATED 1,000 ML IV ONE (21:15)
--- NOTE | 2021-08-06 21:32 | RAD ---
EXAMINATION: CTA CHEST_ABDOMEN_AND PELVIS CLINICAL HISTORY: Hypoxia, leg swelling, PE? vs Aorta? TECHNIQUE: Spiral high resolution axial images obtained through the chest, abdomen, and pelvis follow ing administration of intravenous contrast, timed to the arterial phase. Coronal and sagittal planar reconstructions and 3D maximum intensity projection images also performed. CT Dose Reduction Employed: One or more of the following individualized dose reduction techniques wer e utilized for this examination: 1. Automated exposure control 2. Adjustment of the mA and/or kV ac cording to patient size 3. Use of iterative reconstruction technique. COMPARISON: None FINDINGS: Prominent motion artifact limits evaluation. CHEST: No evidence of pulmonary arterial thrombus in the main pulmonary artery or right or left main pulmona ry arteries. Remainder of the pulmonary arterial system poorly evaluated due to extensive motion. Moderate to large left pleural effusion with overlying atelectasis. Centrally predominant groundglass opacities and bilateral interstitial thickening, most likely related to edema. Central airways appea r patent on limited evaluation. Ill-defined left thyroid nodule. No mediastinal lymphadenopathy. No evidence of thoracic aortic aneur ysm or dissection. No evidence of coronary atherosclerotic calcification, however, it is of note that this exam is not optimized for assessment of the coronary arteries. Cardiomegaly. Degenerative changes in the thoracic spine. Extensive subcutaneous edema. ABDOMEN/PELVIS: Gallbladder poorly evaluated. Liver, pancreas, spleen, adrenal glands, and kidneys grossly unremarkab le. Minimally filled urinary bladder suboptimally evaluated. Nonenlarged prostate. No dilated bowel. Mild free fluid predominantly in the lower abdomen. No evidence of abdominal aortic dissection. Abdominal aorta, celiac artery, superior and inferior mes enteric arteries, and bilateral renal arteries demonstrate no significant atherosclerotic plaque, foc al stenosis, or aneurysm. Degenerative changes in the lumbar spine. Extensive subcutaneous edema. IMPRESSION: Limited evaluation due to extensive motion artifact. No evidence of pulmonary embolism in the main pulmonary artery or right or left main pulmonary arteri es. No evidence of thoracoabdominal aortic aneurysm or dissection. Findings compatible with volume overload as described, including moderate to large right pleural effu aditya, pulmonary edema, cardiomegaly, mild ascites, and anasarca. Electronically signed by: Dino Rodriguez DO (08/06/2021 9:29 PM) [facility]
[2021-08-06 21:37] LABS: BGAS PH 7.26 (7.35-7.46)
[2021-08-06] MEDS ORDERED: ASPIRIN CHEWABLE 81 MG TABLET. PO ONE (21:45)
[2021-08-06] MEDS ORDERED: NITROGLYCERIN SUBLINGUAL 0.4 MG BOTTLE OF 25. SL PRN (22:00)
[2021-08-06] MEDS ORDERED: NITROGLYCERIN PREMIX 250 ML IV ONE (22:00)
[2021-08-06] MEDS ORDERED: MORPHINE SULFATE 4 MG/ML DISP.SYRIN. IV ONE (22:15)
--- NOTE | 2021-08-06 22:22 | RAD ---
Exam: Chest one INDICATION: Shortness of breath, pain TECHNIQUE: Frontal view of the chest Comparisons: None FINDINGS: The cardiomediastinal silhouette and pulmonary vessels are within normal limits. Hazy opacities in lungs bilaterally. Small bilateral pleural effusions. IMPRESSION: Findings likely related to pulmonary edema with small bilateral pleural effusions. Superimposed infec tious process is difficult to exclude. Electronically signed by: Franky Webster MD (08/06/2021 10:20 PM) [facility]
[2021-08-06 22:45] VITALS: BP 160/114
[2021-08-06 23:00] VITALS: BP 169/113
--- NOTE | 2021-08-06 23:08 | RAD ---
Bilateral Lower Extremity Venous Doppler Ultrasound History: Reason: Bilateral swelling LE, tense, DVT / Spl. Instructions: / History: Comparison: None Procedure: Color flow, duplex, spectral analysis and 2D images are obtained with and without compress ion in the area of the common femoral vein, superficial femoral vein - femoral vein junction, main fe moral vein (superficial femoral vein) and popliteal vein. Veins of the proximal calf are also imaged. Findings: There is normal duplex flow, color flow and compressibility of all visualized vein segments. No evide nce of deep venous thrombus is present. Impression: No evidence of DVT. Electronically signed by: Michael Galvez III, MD (08/06/2021 11:05 PM) [facility]
[2021-08-06 23:37] VITALS: BP 171/111
[2021-08-07 00:14] VITALS: BP 165/104
[2021-08-07 00:40] VITALS: BP 170/115
[2021-08-07 00:55] VITALS: BP 168/120
[2021-08-07] MEDS ORDERED: PANTOPRAZOLE IV 40 MG VIAL. IVP ONE (01:00)
[2021-08-07] MEDS ORDERED: SODIUM BICARBONATE IVF 150 MEQ in IV DEXTROSE 5% 1,000 ML IV ONE (01:15)
[2021-08-07] MEDS ORDERED: SODIUM BICARBONATE 50 MEQ/50 ML VIAL. ONE ×2 (01:47→02:10)
[2021-08-07 02:22] VITALS: BP 173/102
[2021-08-07 03:05] VITALS: BP 188/113
[2021-08-07] MEDS ORDERED: LABETALOL 20 MG/4 ML DISP.SYRIN. ONE ×2 (03:31→03:39)
[2021-08-07] MEDS ORDERED: LABETALOL 20 MG/4 ML DISP.SYRIN. IVP ONE (03:45)
[2021-08-07 04:13] LABS: FECAL OB PT NEGATIVE (NEG)
== END 2021-08-07 03:55 | disposition short-term general hospital (02) ==
LOC: MERGE 19:43 → ER 19:43
DX: E87.2 Acidosis (principal); D64.9 Anemia, unspecified; R06.03 Acute respiratory distress; R09.02 Hypoxemia; N19 Unspecified kidney failure; I10 Essential (primary) hypertension; E66.9 Obesity, unspecified; Z20.822 Contact with and (suspected) exposure to COVID-19; Z68.36 Body mass index [BMI] 36.0-36.9, adult
CPT/HCPCS: 36415; 36430; 36600; 71045; 71275; 74174; 74175; 80053; 82010; 82274; 82803; 83605; 83735; 84484; 85025; 85379; 85384; 85610; 85730; 86850; 86900; 86901; 86920; 87040; 87426; 93970; 94640; 94660; 96365; 96366; 96367; 96368; 96374; 96375; 96376; 99285; C9113; C9803; J1956; J2270; J2405; J3490; J7050; P9016; U0003